=== PATIENT | male | born 1970 | race African-American/Black ===

== ENCOUNTER 2023-09-04 08:50 | Outpatient (CLI) | payer OTHER ==
--- NOTE | 2023-09-04 09:34 | Sleep Patient Instructions ---
Sleep Center Visit Summary - Patient Visit Information Reason for Visit: Initial consultation - Patient Instructions Additional Instructions: You will continue with CPAP therapy with pressure set at 11-14 cmH2O. A supply prescription will be updated with your DME. I have added an order to update your PAP machine. Please call the office to schedule a compliance follow up once you get your new device. A prescription for a travel CPAP was given to you and you may purchase one at your discretion. We encourage you to continue to try to lose weight. Please follow up with the sleep care office one month after obtaining new device. - Clinic Information Contact: [facility] [address] [place] [address] [email or web address] T: [phone]
--- NOTE | 2023-09-04 09:42 | SLEEP CARE CONSULTATION ---
Information from patient questionnaire entered by Earnestine Ruby. I have reviewed and concur with the information entered by Earnestine Ruby. This document represents the service I personally performed and the decisions made by me, Essence Salinas ARNP. History of Present Illness Service Date and Time: 09/04/2023 0850 Reason for Visit: New patient, sleep apnea on CPAP therapy Chief Complaint: reports: Other (UPDATE SUPPLIES) Date of Onset: 14YRS Usual bedtime: 2200 Time it takes to fall asleep: 40MNS Snores at night: Yes Observed to quit breathing while asleep: Yes Sleeps alone due to snoring: No Number of times waking at night: 2 Reasons for waking at night: reports: Choking, Gasping for air, Bathroom Toss, Turn, or Twitch while sleeping: Yes Recalls having dreams: Yes Usually gets out of bed at: 0600 Feels refreshed in the morning: No Morning headache: No Sleepy or fatigued during the day: Yes Ever fallen asleep while driving: Yes Takes day naps: No Dreams during day naps: No Prior sleep studies: Yes Year and Where: [address] [facility] Additional HPI information: SUJIT BELL was previously diagnosed to have extremely severe, AHI 100.6, obstructive sleep apnea-hypopnea syndrome in sleep study dated 09/05/[address] [facility] and comes in today to establish care for CPAP therapy. - Parasomnia Symptoms Ever been unable to move upon waking from sleep: No Walks in sleep: No Talks in sleep: No Ever acted out dreams in sleep: No Ever felt weak in the knees when startled or emotional: No Bothered by creepy, crawly, restless sensations in legs: No Problems with memory or concentration: No CPAP Compliance Data - Data Reviewed with Patient Average duration of nightly device use: 5 hours 52 minutes Compliance rate %: 62 (06/06/23-09/03/23; 63/90 days used) Current pressure setting (cmH2O): 11-14 Average residual AHI: 1.4 Central apnea: 0.3 Obstructive apnea: 0.5 Hypopnea: 0.5 Average large leak: 0.1 L/min Compliance data discussion: He has an Airsense 10 that was set up in 2014. He buys his own supplies. He is using a Resp[employer]ics Doreen View full face mask, medium cushion. Subjective Missed days of use due to: reports: other (fall asleep downstairs) Patient concerns: reports: mask leak noise (sometimes, needs to readjustment), dry mouth, nose, throat (dry mouth). denies: aerophagia, mask discomfort, air blowing in eyes, condensation in mask/hose, epistaxis Observed to snore while using device: No Current pressure setting perceived as: comfortable On therapy, patient: reports: sleeping better, awakening more refreshed, being more awake and alert during the day, more rested overall. denies: drowsiness while driving Initial [place] Sleepiness Scale score: 11 (09/04/23) Past Medical History Past Medical History: reports: Hypertension, GERD Social History The patient's occupation is a [place]. Patient is and lives in . Have you smoked in the past 12 months: No Alcohol use: No Caffeine use: No Family History Family history of sleep disordered breathing: Yes Family Hx Sleep Apnea: Father: Snoring Allergies and Home Medications Known drug allergies: Yes ( LISTED) Drug allergies reviewed: Yes Home medication list reviewed: Yes (as listed) Allergy and home medication list: Allergies aspirin Allergy (Verified 09/03/23 07:48) Respiratory Home Medications Medication Instructions Recorded Confirmed Last Taken Type Amlodipine Besylate [Norvasc] See Rx Instructions .ROUTE .COMPLEX 09/04/23 09/04/23 Unknown History Omeprazole See Rx Instructions .ROUTE .COMPLEX 09/04/23 Unknown History Review of Systems Cardiovascular: reports: high blood pressure, leg or foot swelling Gastrointestinal: reports: heartburn Neurological: denies: headaches Psychiatric: denies: anxiety, depression Ear/Nose/Throat: reports: nasal congestion, sinus problems, wisdom teeth removed. denies: tonsillectomy Physical Exam Vital signs obtained and entered by: EARNESTINE Brito MA Blood Pressure: 161/106 (RIGHT ARM) Cuff size: long Heart Rate: 68 O2 Saturation: 96 Height: 5 ft 9 in Weight: 270 lb 3.2 oz Body Mass Index: 39.9 BMI Classification: Obese Neck circumference: 17.5 Heart: regular rate and rhythm Lungs: clear bilaterally Impression and Plan 1. Obstructive Sleep Apnea-Hypopnea Syndrome, extremely severe, with fair treatment compliance and good apnea control. On CPAP therapy, the patient has better sleep quality and is more rested overall. I encouraged Sujit to increase his compliance and explained reasons. He voiced understanding and agreement. Patient last updated his machine in 2014. He states his current machine will not turn off by the button. He says he cannot get into any of the settings anymore and the data does not seem to be transmitting. He also needs a DME supplier. The patients CPAP is over 5 years old and of reasonable use. Thus, the CPAP will be updated. The new CPAPs also have a better humidity system which could assist control of patients dryness symptoms. A DWO prescription will be made. Compliance guidelines for new device and follow up discussed. Patient's apnea severity and rationale for treatment to reduce apnea, improve sleep quality and reduce cardiovascular and cerebrovascular events was reviewed. I also reviewed the benefit of consistent device use of CPAP for hypertension, gastric reflux. Sujit also asked about getting a travel CPAP. He understands he would pay for this machine. A prescription was completed for him and given to him at the conclusion of his visit. 2. Obesity, unspecified. Currently patients BMI is 39.9. Obesity increases the risk of apnea, CPAP pressure requirements and overall health risks especially cardiovascular and diabetes. Thus patient is advised to lose weight. * Continue auto CPAP pressure at 11-14 cmH2O * Travel CPAP prescription * Update supply prescription * Update machine * Notify me if snoring with mask or feeling that the pressure is too much or too little * Attempt to lose weight * Call this office if any problems using CPAP * Return for follow up one month after obtaining new CPAP, or sooner if concerns arise Continue with device pressure at (cmH2O): 11-14 Counseling Topics: Weight loss health impact Prescriptions: Auto CPAP, Device supplies, Other (travel CPAP) Plan: replacement APAP and compliance followup Visit Type: In Office Time Spent with Patient (minutes): 38 Provider Statement: I spent 100% of the Face to Face Visit with the patient with greater than 50% spent counseling the patient and coordination of care.
[2023-09-04 10:11] VITALS: BP 161/106; O2SAT 96
== END 2023-09-04 08:51 | disposition home or self-care (01) ==
LOC: SC 08:50
PROVIDERS: ATTEND Nurse Practitioner Family
DX: G47.33 Obstructive sleep apnea (adult) (pediatric) (principal); E66.9 Obesity, unspecified; Z68.39 Body mass index [BMI] 39.0-39.9, adult
CPT/HCPCS: 99203; 99212